=== PATIENT | male | born 1995 | race Caucasian/White ===

== ENCOUNTER → 2017-10-03 | Outpatient (CLI) | payer OTHER ==
[~2017-10-03] MED LIST: ALBU1AER9 INH; CNC/54 PO; FEXO1TAB45 PO; MOME50SP5; MONT1CHW6 PO; OPTIRAY 320 IV PRN; [UNRECOGNIZED DRUG - CODE] SC
--- NOTE | 2017-10-03 11:11 | DIAGNOSTIC IMAGING REPORT ---
CT ABD/PELVIS COMBO WITH ORAL CLINICAL HISTORY: M54.9 Back painR30.0 Dysuria COMPARISON STUDY: None. TECHNIQUE: Unenhanced images were obtained to the abdomen and pelvis. The patient was injected with 50 cc Optiray 320. After 5 minute delay, the patient is rescanned in a dynamic helical fashion during the additional administration of 44 cc Optiray 320. A dose lowering technique was utilized adhering to the principles of ALARA. CT DOSE: 451.84 mGycm FINDINGS: Lower chest: The heart is normal in size and configuration, without pericardial effusion. The lung bases and pleural spaces are clear. Liver: The contrast-enhanced liver is normal in size, contour, and attenuation. There is no intrahepatic biliary ductal dilatation. The hepatic veins and portal veins are patent. Gallbladder: Unremarkable. Spleen: Normal in size and attenuation. Pancreas: Unremarkable. Adrenal glands: Unremarkable. Kidneys: No renal, ureteral, or bladder calculi are visualized. No renal masses are visualized. No collecting system or ureteral lesions are delineated. There is mild dilatation of the right renal pelvis with clubbing of the calyces. There is infundibular narrowing involving interpolar region on the right. On the left there is an equivocal tiny focus of renal papillary necrosis. Bowel: There are no transition zones indicate bowel obstruction. There are surgical clips within the left upper quadrant. There is no acute diverticulitis. There is no evidence of acute appendicitis. Peritoneum: There is no intraperitoneal free air or abdominal ascites. Vasculature: The abdominal aorta is normal in course and caliber. Adenopathy: None. Pelvic viscera: The bladder, and pelvic viscera are unremarkable. Skeletal structures: There are mild endplate erosive changes at the T11-12 level. IMPRESSION: 1. No renal, ureteral, or bladder calculi identified 2. No renal masses identified 3. Mild dilatation of right renal pelvis with clubbing of the calyces. There is infundibular narrowing at the midpole level of the right. 4. 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 5. No acute inflammatory changes 6. No evidence of pathologic adenopathy Electronically signed by: Dirk Rowan M.D. 10/03/2017 11:09 AM Dictated Date/Time: 10/03/2017 10:58 AM
--- NOTE | 2017-10-03 12:20 | DIAGNOSTIC IMAGING REPORT ---
(TESTICULAR) SCROTUM-CONT CLINICAL HISTORY: 22 years-old Male with M54.9 Back painR30.0 [id number] Groin pain. Acute dysuria with bilateral groin pain COMPARISON STUDY: CT abdomen and pelvis of same day TECHNIQUE: Real-time, grayscale, and color Doppler sonography of the testes and scrotum is performed. Images are reviewed in the transverse and longitudinal planes. FINDINGS: RIGHT HEMISCROTUM: The right testis measures 4.2 x 2.2 x 1.6 cm and the parenchyma appears unremarkable. No intratesticular mass is seen. Normal-appearing arterial inflow is present within the right testicle. The right epididymal head appears normal. No varicocele or hydrocele is identified. LEFT HEMISCROTUM: The left testis measures 4.3 x 2.1 x 2.0 cm and the parenchyma appears unremarkable. No intratesticular mass is seen. Normal-appearing arterial inflow is present within the left testicle. The left epididymal head appears normal. No hydrocele. Small varicocele. Suggested small fat filled right inguinal hernia. IMPRESSION: 1. Normal sonographic appearance of the bilateral testicles and epididymides. 2. Left varicocele. 3. Suggested small fat filled right inguinal hernia. The above report was generated using voice recognition software. It may contain grammatical, syntax or spelling errors. Electronically signed by: Ney Carlisle M.D. 10/03/2017 12:19 PM Dictated Date/Time: 10/03/2017 12:15 PM
== END | disposition home or self-care (01) ==
LOC: C.CTS 10:16
PROVIDERS: ATTEND Urology
DX: M54.9 Dorsalgia, unspecified (principal); R30.0 Dysuria; R10.30 Lower abdominal pain, unspecified